=== PATIENT | female | born 1935 | race Caucasian/White ===

== ENCOUNTER 2016-07-28 20:14 | Emergency (ER) | payer OTHER ==
[~2016-07-28] VITALS: Ht 165.1 cm; Wt 97.1 kg
[~2016-07-28 20:14] MED LIST: AMLODIPINE BESY10 M1 PO; CELECOXIB200 M1 PO; FUROSEMIDE20 M1 PO; LISINOPRIL10 M1 PO; OXYBUTYNIN CHLO10 M1 PO; PANTOPRAZOLE SO40 M1 PO; PERCOCET 5-3251 EACH PO; VICODIN 5-3001 EACH PO; ZANAFLEX2 M2 PO
--- NOTE | 2016-07-28 20:29 | ED UPPER/LOWER EXTREMITY COMPL ---
See Addendum History of Present Illness General Chief Complaint: Hip Injury Stated Complaint: RIGHT HIP PAIN NO KNOWN INJURY Source: patient, EMS Exam Limitations: no limitations Vital Signs & Intake/Output Vital Signs & Intake/Output Vital Signs Date Time Temp Pulse Resp B/P B/P Pulse O2 O2 Flow FiO2 Mean Ox Delivery Rate 07/29 0756 97.2 80 20 171/78 98 Room Air 07/28 2340 98.1 78 20 134/63 95 Room Air 07/28 2024 98.3 80 16 123/60 98 Room Air Room Air ED Intake and Output 07/29 0000 07/28 1200 Intake Total 0 Output Total Balance 0 Intake, Oral 0 Patient 214 lb Weight Weight Estimated Measurement Method Allergies Coded Allergies: No Known Allergies (07/28/16) Reconcile Medications Amlodipine Besylate 10 MG TABLET 1 TAB PO DAILY B/P (Reported) Celecoxib 200 MG CAPSULE 1 CAP PO DAILY ARTHRITIS (Reported) Furosemide 20 MG TABLET 1 TAB PO DAILY CHF (Reported) Hydrocodone/Acetaminophen (Vicodin 5-300 MG Tablet) 5 MG-300 MG TABLET 1 TAB PO BID PRN HIP PAIN (Reported) Lisinopril 10 MG TABLET 1 TAB PO DAILY BP (Reported) Oxybutynin Chloride (Oxybutynin Chloride ER) 10 MG TAB.ER.24 1 TAB PO DAILY OVERACTIVE BLADDER (Reported) Oxycodone HCl/Acetaminophen (Percocet 5-325 MG Tablet) 5 MG-325 MG TABLET 1 TAB PO BID Hip Pain Pantoprazole Sodium 40 MG TABLET.DR 1 TAB PO DAILY ACID REFLUX (Reported) Tizanidine HCl (Zanaflex) 2 MG CAPSULE 0.5 TAB PO Q6 PAIN (Reported) Triage Note: PT BIBA FROM HOME FOR RIGHT HIP PAIN. PT HAS CORTISONE INJECTION AT 1500 TODAY AND HAS HAD INCREASING PAIN SINCE. PT STATES EARLIER IT WAS SHOOTING DOWN TO HER KNEE. DENIES FALLING. +CMS. Triage Nurses Notes Reviewed? yes Onset: Abrupt Duration: hour(s): (SEVERAL) Timing: single episode today Severity: moderate, severe Pain/Injury Location: Right: Hip, Leg, Knee. Associated Symptoms: SPASM HPI: This is an 81-year-old female with history of arthritis status post bilateral shoulder, bilateral knee and left hip replacement. Today she had a cortisone injection in her right hip by Tony Jones MD. She states that he went posteriorly and didn't injection. Right after the injection she try to get off the table and had pain in the back. He told her he couldn't do another injection and sent her home to Tylenol earlier without any relief. Tonight the pain got so bad that she had to come to the ER for evaluation. Patient called EMS. Denies any numbness or tingling. She states pain is worse with movement. She rates it as 8 out of 10 severe, sharp, radiating from the left buttock down to the right posterior thigh. Patient denies any trauma. She uses a rolling walker at home. (GUNNAR LOGAN MD) Past History Travel History Traveled to [place] past 21 day No Medical History Any Pertinent Medical History? 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 No (GUNNAR LOGAN MD) Review of Systems Review of Systems Constitutional: Denies: chills, fever. EENTM: Reports: no symptoms. Respiratory: Denies: cough, short of breath. Cardiovascular: Denies: chest pain. Gastrointestinal/Abdominal: Reports: no symptoms. Genitourinary: Reports: no symptoms. Musculoskeletal: Reports: back pain, joint pain, muscle pain. Denies: muscle stiffness, neck pain. Skin: Reports: no symptoms. Neurological/Psychological: Reports: no symptoms. Hematologic/Endocrine: Denies: bruising, bleeding. Immunological: Reports: no symptoms. All Other Systems: Reviewed and Negative (GUNNAR LOGAN MD) Physical Exam Physical Exam General Appearance: well developed/nourished, alert, awake, mild distress, obese Head: atraumatic Eyes: Bilateral: PERRL, EOMI. Ears, Nose, Throat: normal pharynx, normal ENT inspection, hearing grossly normal Neck: normal inspection, supple Cardiovascular/Respiratory: regular rate/rhythm Peripheral Pulses: 2+ radial (R), 2+ radial (L), 2+ dorsalis pedis (R), 2+ dorsalis pedis (L) Back: normal inspection Shoulder Left: normal range of motion, normal inspection Shoulder Right: normal range of motion, normal inspection Leg Left: normal range of motion, normal inspection Leg Right: normal range of motion, normal inspection Hip Left: normal range of motion, normal inspection Hip Right: pain (right hip rom) Foot Left: normal inspection, normal range of motion Foot Right: normal inspection, normal range of motion Skin: intact, normal color, warm/dry Lymphatic: no anterior cervical cristhian (GUNNAR LOGAN MD) Progress Differential Diagnosis: sciatica, arthirits, exacerbation of chronic pain Plan of Care: Orders Procedure Date/time Status Regular Diet 07/29 B Active PT Evaluate & Treat 07/29 125 Active CASE MANAGEMENT CONSULT 07/29 125 Active Current Medications Sig/Flora Start time Last Medication Dose Stop Time Status Admin Amlodipine Besylate 10 MG DAILY 07/29 1000 UNVr (Norvasc) Celecoxib 200 MG DAILY 07/29 1000 UNVr (Celebrex 100MG) Furosemide 20 MG DAILY 07/29 1000 UNVr (Lasix) Lisinopril 10 MG DAILY 07/29 1000 UNVr (Prinivil) Oxybutynin Chloride 5 MG BID 07/29 1000 UNVr (Ditropan) Acetaminophen/ 1 TAB Q6P PRN 07/29 0600 UNVr 07/29 Hydrocodone Bitart 0800 (Vicodin) Tizanidine HCl 1 MG Q6P PRN 07/29 0600 UNVr (Zanaflex) Hand-Off Endorsed To: DIANE BANSAL MD Endorsed Time: 2300 Pending: other (REEVALUATION) (GUNNAR LOGAN MD) Hand-Off Endorsed To: NICOLE KIMBLE DO Endorsed Time: 07 Pending: consult Comments: Patient's does state that the pain is too severe to attempt to walk. Patient will have physical therapy in case management consult. (DIANE BANSAL MD) Departure Departure Disposition: STILL A PATIENT Condition: Stable Clinical Impression Primary Impression: Sciatica Referrals: OMAR TEAGUE (PCP/Family) Departure Forms: Customer Survey General Discharge Information (DESMOND RANDHAWA,GUNNAR) Departure Comments 07/29/16 9 AM The patient was signed out to me by Dr. Bansal. She was ambulated successfully by PT. She is requesting enhancement of her pain medication; PT feels she can go home. She is requesting a physician's note that she can have her meals delivered at home. She currently lives in assisted care. She is pending case management consult to facilitate this discharge plan. She also needs home PT. (NICOLE KIMBLE DO)
[2016-07-29] MEDS ORDERED: VICODIN 5-3001 EACH PO (13:36)
[2016-07-29 14:10] VITALS: BP 116/70
== END 2016-07-29 14:11 ==
LOC: ERH 20:14
DX: M54.41 Lumbago with sciatica, right side (principal)
CPT/HCPCS: 96374; 96375; J0131; J1100; J1885; J3360

== ENCOUNTER 2016-08-23 13:10 | Emergency (ER) | payer OTHER ==
[~2016-08-23] VITALS: Ht 167.6 cm; Wt 90.7 kg
[2016-08-23] MEDS ORDERED: FLONASE ALLERG9.9 ML INH (13:30)
[2016-08-23] MEDS ORDERED: TYLENOL ARTHRI650 M1 PO (13:30)
[2016-08-23] MEDS ORDERED: VENTOLIN HFA18 GM INH (13:31)
[2016-08-23] MEDS ORDERED: PERCOCET 5-3251 EACH PO (13:31)
[2016-08-23] MEDS ORDERED: NORVASC10 M1 PO (13:32)
[2016-08-23] MEDS ORDERED: PROTONIX40 M3 PO (13:32)
[2016-08-23] MEDS ORDERED: OXYBUTYNIN CHLO10 M1 PO (13:32)
[2016-08-23] MEDS ORDERED: CELEBREX200 M1 PO (13:33)
[2016-08-23] MEDS ORDERED: ASPIRIN EC81 M1 PO (13:34)
[2016-08-23] MEDS ORDERED: CO Q-1050 M1 PO (13:34)
[2016-08-23] MEDS ORDERED: VITAMIN D31000 UNI1 PO (13:34)
[2016-08-23] MEDS ORDERED: MAGNESIUM500 M2 PO (13:35)
[2016-08-23] MEDS ORDERED: TIZANIDINE HCL2 M2 PO (13:35)
[2016-08-23] MEDS ORDERED: LISINOPRIL10 M1 PO (13:35)
[2016-08-23] MEDS ORDERED: LASIX20 M1 PO (13:36)
--- NOTE | 2016-08-23 13:54 | ED UPPER/LOWER EXTREMITY COMPL ---
History of Present Illness General Chief Complaint: Hip Injury Stated Complaint: BIBA HIP PAIN Source: patient, family, old records Exam Limitations: no limitations Vital Signs & Intake/Output Vital Signs & Intake/Output Vital Signs Date Time Temp Pulse Resp B/P B/P Pulse O2 O2 Flow FiO2 Mean Ox Delivery Rate 08/23 1315 96.8 72 16 143/94 97 Room Air Allergies Coded Allergies: No Known Allergies (07/28/16) Reconcile Medications Acetaminophen (Tylenol Arthritis) 650 MG TABLET.ER 1 TAB PO Q6-PRN PRN PAIN ( Reported) Albuterol Sulfate (Ventolin Hfa) 90 MCG HFA.AER.AD 2 PUF INH Q4-6 PRN PRN ASTHMA (Reported) Amlodipine Besylate (Norvasc) 10 MG TABLET 1 TAB PO DAILY HTN (Reported) Aspirin (Ecotrin*) 81 MG TABLET.DR 1 TAB PO DAILY HEART HEALTH (Reported) Celecoxib (Celebrex) 200 MG CAPSULE 1 CAP PO BID ARTHRITIS (Reported) Cholecalciferol (Vitamin D3) (Vitamin D3) 1,000 UNIT CAPSULE 1 CAP PO DAILY SUPPLEMENT (Reported) Fluticasone Propionate (Flonase Allergy Relief) 50 MCG/ACTUATION SPRAY.SUSP 1 SPRAY INH BID ALLERGIES (Reported) Furosemide (Lasix) 20 MG TABLET 1 TAB PO DAILY CHF (Reported) Lisinopril 10 MG TABLET 1 TAB PO DAILY HTN (Reported) Magnesium Oxide (Magnesium) 500 MG CAPSULE 0.5 CAP PO DAILY SUPPLEMENT ( Reported) Oxybutynin Chloride (Oxybutynin Chloride ER) 10 MG TAB.ER.24 1 TAB PO DAILY OVERACTIVE BLADDER (Reported) Oxycodone HCl/Acetaminophen (Percocet 5-325 MG Tablet) 5 MG-325 MG TABLET 1 TAB PO BIDP PRN PAIN (Reported) Pantoprazole Sodium (Protonix) 40 MG TABLET.DR 1 TAB PO DAILY GERD (Reported) Tizanidine HCl 2 MG CAPSULE 1 TAB PO BID MUSCLE SPASMS (Reported) Ubidecarenone (Co Q-10) 50 MG CAPSULE 1 TAB PO DAILY HEART HEALTH (Reported) Triage Note: PT JOHNNY FROM HOME WITH RT HIP/BUTTOCK PAIN. STATES THE PAIN IS CHRONIC AND SHE SAID SHE AGGRAVATED IT THIS MORNING WHILE GETTING OUT OF BED. REPORTS THAT SHE USUALLY TAKES TYLENOL WITH CODEINE BUT DOESNT LIKE TO TAKE TOO MUCH OF IT FOR FEAR OF GETTING ADDICTED TO IT. STATES SHE DID TAKE A TYLENOL #3 AT AROUND 830 THIS MORNING. DENIES ANY RECENT FALL/INJURY. +DISTAL CMS TO RT LEG. NOTED WITH +1 PITTING EDEMA TO ABDOUL LE. Triage Nurses Notes Reviewed? yes Onset: Just prior to arrival Duration: hour(s):, constant, continues in ED Timing: recent history Severity: moderate Pain/Injury Location: Right: Hip. Method of Injury: unknown Modifying Factors: Improves With: rest. Worsens With: movement. Associated Symptoms: GCS 15 since, stiffness LMP (ages 10-50): post menopausal : No Patient currently breastfeeds: No HPI: Prior to admission patient was getting out of bed and twisted developing right hip pain worse with movement turning bending nonradiating associated with limited range of motion constant mild to moderate in severity. She denies fever chills nausea vomiting diarrhea abdominal pain chest pain shortness of breath headache dysuria rash bleeding. Past History Travel History Traveled to [place] past 21 day No Medical History Any Pertinent Medical History? 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 No Review of Systems Review of Systems Constitutional: Reports: no symptoms. EENTM: Reports: no symptoms. Respiratory: Reports: no symptoms. Cardiovascular: Reports: no symptoms. Gastrointestinal/Abdominal: Reports: no symptoms. Genitourinary: Reports: no symptoms. Musculoskeletal: Reports: see HPI, joint pain. Skin: Reports: no symptoms. Neurological/Psychological: Reports: no symptoms. Hematologic/Endocrine: Reports: no symptoms. Immunological: Reports: no symptoms. All Other Systems: Reviewed and Negative Physical Exam Physical Exam General Appearance: well developed/nourished, alert, awake, anxious, mild distress, obese Head: atraumatic, normal appearance Eyes: Bilateral: normal appearance, PERRL, EOMI. Ears, Nose, Throat: normal pharynx, normal ENT inspection, hearing grossly normal Neck: normal inspection, supple Cardiovascular/Respiratory: regular rate/rhythm Peripheral Pulses: 4+ carotid (R), 4+ carotid (L) Back: normal inspection, normal range of motion, no vertebral tenderness Shoulder Left: normal range of motion, normal inspection Shoulder Right: normal range of motion, normal inspection Elbow Left: normal range of motion, normal inspection Elbow Right: normal range of motion, normal inspection Hand Left: normal inspection, normal range of motion Hand Right: normal inspection, normal range of motion Upper Extremity Reflexes: 2+: bicep (R), bicep (L). Leg Left: normal range of motion, normal inspection Leg Right: normal range of motion, normal inspection Hip Left: normal range of motion, normal inspection Hip Right: normal inspection, tenderness, soft tissue tenderness, limited range of motion Knee Left: normal range of motion, normal inspection Knee Right: normal range of motion, normal inspection Foot Left: normal inspection, normal range of motion Foot Right: normal inspection, normal range of motion Lower Extremity Reflexes: 2+: knee (R), knee (L). Neurologic/Tendon: normal sensation, normal motor functions, normal tendon functions Skin: intact, normal color, warm/dry Lymphatic: no anterior cervical cristhian Progress Differential Diagnosis: contusion, dislocation, fracture, sprain Plan of Care: Orders Procedure Date/time Status MAGNESIUM 08/23 131 Complete COMPREHENSIVE METABOLIC PANEL 08/23 1318 Complete CBC WITHOUT DIFFERENTIAL 08/23 1318 Complete Laboratory Tests 08/23/16 1422: Anion Gap 11, Estimated GFR > 60, BUN/Creatinine Ratio 33.3 H, Glucose 103 H, Calcium 9.6, Magnesium 1.8, Total Bilirubin 0.9, AST 22, ALT 41, Alkaline Phosphatase 50, Total Protein 6.7, Albumin 3.8, Globulin 2.9, Albumin/Globulin Ratio 1.3, CBC w Diff NO MAN DIFF REQ, RBC 4.60, MCV 89.9, MCH 29.5, RDW 14.0, MPV 8.3, Gran % 49.6, Lymphocytes % 38.4, Monocytes % 7.7, Eosinophils % 3.8, Basophils % 0.5, Absolute Granulocytes 3.0, Absolute Lymphocytes 2.3, Absolute Monocytes 0.5, Absolute Eosinophils 0.2, Absolute Basophils 0, PUBS MCHC 32.8 L Diagnostic Imaging: Viewed by Me: Radiology Read. Discussed w/RAD: Radiology Read. Radiology Impression: [id number] osteoarthritis. No fracture. Departure Departure Time of Disposition: 1529 Disposition: HOME OR SELF CARE Condition: Stable Clinical Impression Primary Impression: Osteoarthritis of right hip Qualifiers: Osteoarthritis type: unspecified Qualified Code: M16.11 - Unilateral primary osteoarthritis, right hip Referrals: OMAR TEAGUE (PCP/Family) Departure Forms: Customer Survey General Discharge Information
--- NOTE | 2016-08-23 14:16 | RADIOLOGY REPORT ---
EXAMINATION: XR HIP, RIGHT CLINICAL INFORMATION: Right hip pain. Osteoarthritis. Evaluate for a fracture. COMPARISON: Multiple priors, most recent CT pelvis dated 02/20/2016. TECHNIQUE: AP and frog-leg lateral views of the right hip. FINDINGS: There is severe joint space narrowing with mild associated subchondral sclerosis. There are small subchondral cysts and small marginal osteophytes. There is no fracture or dislocation. There is no abnormal soft tissue calcification. IMPRESSION: [id number] osteoarthritis. No fracture.
[2016-08-23 14:39] LABS: ABSOLUTE BASOPHIL COUNT 0 /CUMM (0.0-0.2); ABSOLUTE EOSINOPHIL COUNT 0.2 /CUMM (0.0-0.7); ABSOLUTE LYMPH COUNT 2.3 /CUMM (1.2-3.4); ABSOLUTE MONOCYTE COUNT 0.5 /CUMM (0.10-0.60); BASOPHIL % 0.5 % (0.0-2.0); EOSINOPHIL % 3.8 % (0-5); GRANULOCYTE % 49.6 % (42.2-75.2); HEMATOCRIT 41.3 % (37-47); MEAN CORPUSCULAR HGB 29.5 PG (27.0-31.0); MEAN CORPUSCULAR HGB CONC 32.8 G/DL (33.0-37.0); MEAN CORPUSCULAR VOLUME 89.9 FL (81.0-99.0); MEAN PLATELET VOLUME 8.3 FL (7.4-10.4); PLATELET COUNT 188 /CUMM (130-400); WHITE BLOOD CELL COUNT 6.1 /CUMM (4.8-10.8)
[2016-08-23] MEDS ORDERED: ULTRAM50 M1 PO (15:39)
[2016-08-23 16:30] VITALS: BP 111/58
== END 2016-08-23 16:42 ==
LOC: ERH 13:10
PROVIDERS: Emergency Medicine
DX: M16.11 Unilateral primary osteoarthritis, right hip (principal)
CPT/HCPCS: 73502-RT; 96372

== ENCOUNTER 2016-10-11 04:57 | Inpatient (IN) | payer OTHER ==
[~2016-10-11] VITALS: Ht 165.1 cm; Wt 90.7 kg
[~2016-10-11 04:57] MED LIST changes: +ASPIRIN EC81 M1 PO; +CELEBREX200 M1 PO; +CO Q-1050 M1 PO; +FLONASE ALLERG9.9 ML INH; +IRON325 M3 PO; +LASIX20 M1 PO; +MAGNESIUM500 M2 PO; +MELATONIN3 M4 PO; +NORVASC10 M1 PO; +PROTONIX40 M3 PO; +TIZANIDINE HCL2 M2 PO; +TYLENOL ARTHRI650 M1 PO; +ULTRAM50 M1 PO; +VENTOLIN HFA18 GM INH; +VITAMIN D31000 UNI1 PO
--- NOTE | 2016-10-11 11:39 | Operative Report ---
Operative/Inv Procedure Report Surgery Date: 10/11/16 Name of Procedure: Revision right total knee arthroplasty Pre-Operative Diagnosis: A septic loosening right total knee arthroplasty Post-Operative Diagnosis: Same with final pathology/microbiology pending Estimated Blood Loss: less than 50ml Surgeon/Facility Service Associate: ALEC RANDHAWA,Jud[facility] [employer] Anesthesia: block Implants: [place] triathlon total knee revision system-size 4 femur with 18 mm fluted stem , size 4 tibia with 14 mm fluted stem, 13 mm TS polyethylene Drains: None Specimens: Total knee arthroplasty, membrane Microbiology: Urine Tourniquet: 109 minutes, 14 minutes Complications: None Condition: Stable Operative Indication: Patient is an 81-year-old woman who had a right total knee arthroplasty at least 25 years ago. 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 She was referred to co for further evaluation and treatment. Patient required a total knee arthroplasty revision. She wished to proceed with this after risks, benefits and expectations were discussed which included but were not limited to persistent knee pain, need for subsequent surgery, infection , DVT, injury to blood vessel or nerve. Preoperative indications included findings consistent with loosening of total knee arthroplasty, instability, decreased ability to ambulate secondary to the knee problem and worsening alignment Operative/Procedure Note Note: Patient was brought patient was brought to the operating room and transferred to the operating table. Once under appropriate anesthesia the right lower extremity was prepped and draped in standard fashion area preoperative IV antibiotics were given prophylactically. Leg was elevated exsanguinated and tourniquet was inflated to 300 mm of pressure. Standard anterior incision was made through previous incision. Incision was taken down sharply to the underlying retinaculum. A medial retinacular approach with a minimal extension into the quadriceps tendon was used to enter the joint. There was evidence of loosening of the femoral component and tibial component as well as a subsidence of the tibial component into varus. I debrided significant amount of synovial hypertrophy there was some metallosis along the most medial aspect of the of the joint. After debridement I then assessed the interfaces and remove any soft tissue that would interfere with removal of the prosthetic components. The femoral component was removed first. Care was taken to avoid any increased loss of bone during removal of the component. Cement mantle was removed at the interfaces and I used a bone tamp to remove the femoral component. Once this was accomplished I was able to address the tibia. I was dealing with a polyethylene tibia therefore I used a saw to cut the base of the post off and then I removed the main portion of the polyethylene. This allowed me to flex the knee further and then removed the post as a separate piece. The cement mantle was removed circumferentially around the tibia and femur. Copious irrigation followed. Synovectomy was completed posteriorly. I then proceeded with preparation of the femur. And reamers up to a size 18 were used in order to place the shortest stem. The bone support would be very good and therefore he did not need a long stem component. I proceeded to leave the [address] and then constructed the distal femoral cutting jig. The cut was made at 6. It was basically a freshening cut. I then sized the femur to a size 4. I made my 4 cuts while protecting the soft tissues. It was apparent that patient had an elevated joint line based on my preoperative templating. Therefore decided to proceed with placing the distal aspect of the femur 5 mm more distal than it was. This would hopefully combat effects of the patella baja which patient had also developed based on preoperative templating and my intraoperative findings. Once I completed preparation of femur I instructed the femoral component and the back table and then impacted the trial in place. I was satisfied with the fit. The trial component was removed. I then turned my attention to the tibia. The internal tibial guide was used I reamed up to a size 14. I left the size [address] I then constructed the cutting jig for a neutral cut from posterior to anterior as well as medial to lateral. This was also a freshening cut. I was able to save the medial shell as well as posterior shell. After the freshening cut was made I then sized the tibia to a size 4. Constructed the size 4 with the tibial stem in place after I prepared the proximal aspect the tibia with the reamer followed by the punch. Care was taken to avoid any undue pressure on the sclerotic bone of this patient's proximal tibia. Once I was satisfied with the preparation of tibia I impacted the trial tibia in place with the short stem. I placed trial polyethylenes up to a size 13. I was satisfied with the stability with a size 13. I evaluated the patella. The patella itself was intact as far as his interface with the patellar bone and the cement mantle was intact. There was a very small amount of wear along the most medial aspect of the patella. This was most likely due to patient's developed deformity and this area would be alleviated by just fixing the overall alignment of the lower extremity. Therefore I elected not to add to the surgical trauma and risk not been able to resurface the patella and therefore left the current patella in place. I confirm that it had excellent tracking and it did. There was no evidence of tilt or subluxation or instability. There was no need for a lateral patellar release. I then removed all trial components. Copious irrigation of the knee followed during construction of the complicated components on the back table I elected to deflate the tourniquet so that I did not have a continuous tourniquet time of 2 long period. Therefore did later the tourniquet for about 10-15 minutes. Once the components were ready the cement was being mixed on the back table. The bony surfaces were copiously irrigated. Once the cement was ready applied to the dry clean bony surfaces of the tibia. The size 4 stemmed tibial component was impacted in place and excess cement was removed with curettes. The stemmed femoral component of size [address] after cement was applied to the dry clean bony surfaces. Excess cement was removed with curette. I then placed a trial 13 mm TS component in place and took the knee out to full extension. As the cement was hardening did appear articular pericapsular injection of a cocktail which included ropivacaine with epinephrine and Toradol for postoperative pain and inflammation management. Once the cement was hardening took the knee through a range of motion. I was satisfied with the stability with the 13 mm insert. Excellent patellofemoral tracking. I then removed the polyethylene copiously irrigated the tibial tray I made sure there was no remaining soft tissue, bone fragments or soft tissue fragments within the tibial tray. I impacted the definitive size [address] The locking mechanism was confirmed. The knee was taken through range of motion. Once again I was satisfied with the patellofemoral tracking and stability in full extension mid flexion and full flexion to gravity. Copious irrigation followed. The tourniquet was deflated the second time after 14 minutes. It was reinflated just for the cement technique and to optimize the dry bony surfaces of the tibia and femur. Hemostasis was confirmed. Copious irrigation followed. Copious irrigation followed every level of closure. Retinacular and quadricep incision was closed with interrupted #1 Vicryl suture. Subcutaneous tissues closed with 2-0 Vicryl in 2 layers and skin was closed with a running 3-0 Vicryl suture with the knee in flexion. Appropriate dressings were applied and patient was awakened and taken to recovery room in good condition. No intraoperative complications Discharge Disposition: PACU
[2016-10-11 14:30] VITALS: BP 130/60
--- NOTE | 2016-10-11 16:17 | PN- Orthopedic ---
Subjective Subjective: POST-OP NOTE: No complaints at this time. Earlier she reported "chest pain", but she feels like it was actually indigestion. Otherwise she hasn't been out of bed yet. No dizziness. No shortness of breath. An EKG was ordered post-op by anesthesia and reviewed by them - with no acute changes appreciated. Objective Vital Signs and I&Os pacu flowsheet reviewed (vss), urine output 495 mls (OR & PACU combined) Physical Exam: General - alert & oriented x 3. comfortable. no acute distress. Lungs - clear bilaterally. no w/r/r. Cardiac - s1s2. reg. Abdomen - soft. nontender. - bowser draining clear, yellow urine. Extremities - right knee dressing c/d/i. ice pack over right knee. on q in place. nvi. Current Medications: Current Medications Sig/Flora Start time Last Medication Dose Route Stop Time Status Admin Al Hydroxide/Mg 30 ML ONCE ONE 10/11 161 UNVr Hydroxide PO 10/11 161 Amlodipine Besylate 10 MG DAILY 10/12 1000 AC PO Dextrose/Lactated 1,000 ML Q13H 10/11 1430 AC 10/11 Ringer's IV 1547 Docusate Sodium 100 MG DAILY NEEDED PRN 10/11 1430 AC PO Fentanyl Citrate 200 MCG .STK-MED ONE 10/12 711 DC IM 10/11 712 Furosemide 20 MG DAILY 10/12 1000 AC PO Hydromorphone HCl 2 MG .STK-MED ONE 10/11 0737 DC IM 10/11 07 Hydromorphone HCl 2 MG .STK-MED ONE 10/11 07 DC IM 10/11 07 Lisinopril 10 MG DAILY 10/12 1000 AC PO Magnesium Oxide 200 MG DAILY 10/12 1000 AC PO Midazolam HCl 4 MG .STK-MED ONE 10/12 711 DC IM 10/11 07 Morphine Sulfate 2 MG Q3P PRN 10/11 1430 AC IV Morphine Sulfate 4 MG Q3P PRN 10/11 1430 AC IV Omeprazole 40 MG DAILY AC 10/12 0700 AC PO Ondansetron HCl 4 MG Q6P PRN 10/11 1430 AC IV Oxybutynin Chloride 5 MG DAILY 10/12 1000 AC PO Oxycodone/ 1 TAB Q4P PRN 10/11 1430 AC Acetaminophen PO Oxycodone/ 2 TAB Q4P PRN 10/11 1430 AC Acetaminophen PO Polyethylene Glycol 17 GM DAILY NEEDED PRN 10/11 1430 AC PO Ropivacaine 500 ML ONCE ONE 10/11 1030 DC ON-Q Ball 1 BAG INJ 10/13 1229 Senna/Docusate Sodium 2 TAB AT BEDTIME NEED.. 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 ekg reviewed (without acute changes). check troponin x 2 darien-operative vanco x 1 coumadin - dvt ppx PT eval - wbat home meds ordered d/c bowser in am if u/o adequate dressing change and on q removal POD#2 d/c planning will call to notify him of her post-op status and reported chest pain will d/w Core Measures/Miscellaneous Venous Thromboembolism VTE Risk Factors: Age > 40, Surgery VTE Contraindications: No Contraindications VTE Diagnosis: No Beta Jalen Is Beta Jalen a Home Med? No Antibiotics Is Patient on Antibiotics? Yes If Yes: prophylaxis
[2016-10-11 16:44] VITALS: BP 136/76
--- NOTE | 2016-10-11 19:01 | Cons- Cardiology ---
General Information and HPI Consulting Request Date of Consult: 10/11/16 Requested By: ALEC RANDHAWA,LACY Reason for Consult: Chest pain History of Present Illness: The patient is an 81-year-old male who is well-known to me with history of hypertension, chronic diastolic heart failure, and paroxysmal SVT. She underwent a right total knee replacement today without complications. I am consulted because of chest pain. Patient reports a left-sided sharp tightness radiating to the back. The discomfort began this morning prior to surgery however she did not report the pain until after surgery. It has been intermittent all day long. It responds to Maalox. No shortness of breath. No diaphoresis. No syncope. No lightheadedness or dizziness. No nausea vomiting. Allergies/Medications Allergies: Coded Allergies: Penicillins (UNKNOWN 10/11/16) PCN PER ONQ BALL ORDER SHEET OF 10/11/16 (SJS) Home Med List: Amlodipine Besylate (Norvasc) 10 MG TABLET 1 TAB PO DAILY HTN (Reported) Aspirin (Ecotrin*) 81 MG TABLET.DR 1 TAB PO DAILY HEART HEALTH (Reported) Celecoxib (Celebrex) 200 MG CAPSULE 1 CAP PO BID ARTHRITIS (Reported) Cholecalciferol (Vitamin D3) (Vitamin D3) 1,000 UNIT CAPSULE 1 CAP PO DAILY SUPPLEMENT (Reported) Ferrous Sulfate (IRON) 325 MG (65 MG IRON) TABLET 1 TAB PO D SUPPLEMENT ( Reported) Furosemide (Lasix) 20 MG TABLET 1 TAB PO DAILY CHF (Reported) Lisinopril 10 MG TABLET 1 TAB PO DAILY HTN (Reported) Magnesium Oxide (Magnesium) 500 MG CAPSULE 0.5 CAP PO DAILY SUPPLEMENT ( Reported) Melatonin 3 MG TABLET 1 TAB PO QPM SLEEP (Reported) Oxybutynin Chloride (Oxybutynin Chloride ER) 10 MG TAB.ER.24 1 TAB PO DAILY OVERACTIVE BLADDER (Reported) Pantoprazole Sodium (Protonix) 40 MG TABLET.DR 1 TAB PO DAILY GERD (Reported) Tizanidine HCl 2 MG CAPSULE 0.5 MG PO 4 TIMES/DAY MUSCLE RELAXER (Reported) Tramadol HCl (Ultram) 50 MG TABLET 1 TAB PO Q6PRN PRN severe pain Ubidecarenone (Co Q-10) 50 MG CAPSULE 1 TAB PO DAILY HEART HEALTH (Reported) Current Medications: Current Medications Sig/Flora Start time Last Medication Dose Route Stop Time Status Admin Al Hydroxide/Mg 30 ML ONCE ONE 10/11 1615 DC 10/11 Hydroxide PO 10/11 1616 1653 Amlodipine Besylate 10 MG DAILY 10/12 1000 AC PO Dextrose/Lactated 1,000 ML Q13H 10/11 1430 AC 10/11 Ringer's IV 1547 Docusate Sodium 100 MG BID 10/11 2200 AC PO Docusate Sodium 100 MG DAILY NEEDED PRN 10/11 1430 DC PO Fentanyl Citrate 200 MCG .STK-MED ONE 10/11 07 DC IM 10/11 07 Furosemide 20 MG DAILY 10/12 1000 AC PO Hydromorphone HCl 2 MG .STK-MED ONE 10/11 0737 DC IM 10/11 0738 Hydromorphone HCl 2 MG .STK-MED ONE 10/11 0711 DC IM 10/11 0712 Lisinopril 10 MG DAILY 10/12 1000 AC PO Magnesium Oxide 200 MG DAILY 10/12 1000 AC PO Midazolam HCl 4 MG .STK-MED ONE 10/11 0712 DC IM 10/11 0713 Morphine Sulfate 2 MG Q3P PRN 10/11 1430 AC IV Morphine Sulfate 4 MG Q3P PRN 10/11 1430 AC IV Omeprazole 40 MG DAILY AC 10/12 0700 AC PO Ondansetron HCl 4 MG Q6P PRN 10/11 1430 AC IV Oxybutynin Chloride 5 MG DAILY 10/12 1000 AC PO Oxycodone/ 1 TAB Q4P PRN 10/11 1430 AC Acetaminophen PO Oxycodone/ 2 TAB Q4P PRN 10/11 1430 AC Acetaminophen PO Polyethylene Glycol 17 GM DAILY NEEDED PRN 10/11 1430 AC PO Ropivacaine 500 ML ONCE ONE 10/11 1030 DC ON-Q Ball 1 BAG INJ 10/13 1229 Senna/Docusate Sodium 2 TAB AT BEDTIME NEED.. 10/11 1430 AC PO Tizanidine HCl 1 MG Q8P PRN 10/11 1430 AC PO Tranexamic Acid 2,000 MG .STK-MED ONE 10/11 0800 DC IV 10/11 0801 Vancomycin HCl 1,250 MG ONCE ONE 10/11 1900 AC Sodium Chloride 250 ML IV 10/11 1959 Vancomycin HCl 1,250 MG ONCE 10/11 0000 DC Sodium Chloride 250 ML IV 10/11 2359 Warfarin Sodium 5 MG COUMADIN 1700 10/11 1700 AC 10/11 PO 10/11 1398 7866 Review of Systems Review of Systems: No rash. No tremor. No melena. All other systems were reviewed, and were noted to be negative. 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 Family history was reviewed with the patient, and is negative for any known factors contributing to the current admission. Psychosocial History Where Do You Live? Assisted Living Services at Home: Home Health Aide, Nursing Smoking Status: Never Smoked Exam & Diagnostic Data Vital Signs and I&O Vital Signs Date Time Temp Pulse Resp B/P B/P Pulse O2 O2 Flow FiO2 Mean Ox Delivery Rate 10/11 1903 98.3 63 20 124/64 95 Nasal Cannula 10/11 1644 97.6 72 20 136/76 96 Nasal Cannula 10/11 1600 Nasal 3.0L Cannula 10/11 1430 97.6 82 18 130/60 97 Nasal 3.0L Cannula 10/11 1430 97 Nasal 3.0L Cannula Intake & Output 10/11 1600 10/11 0800 10/11 0000 10/10 1600 10/10 0800 10/10 0000 Intake Total Output Total Balance Patient 200 lb Weight Weight Reported by Patient Measurement Method Physical Exam: Gen: The patient is in no acute distress HEENT: Normal nose, ears, and oropharynx. Pupils equal bilaterally. Conjunctiva normal. Neck: Supple with no JVD, no masses, and no thyromegaly Lungs: Clear to auscultation with normal respiratory effort Heart: RRR, S1, S2, 2/6 systolic murmur. No peripheral edema, 2+ pulses in the lower extremities bilaterally Abdomen: Soft, nontender, no masses. No hepatomegaly. No splenomegaly Extremities: No clubbing or cyanosis. Normal muscle strength in the upper and lower extremities Skin: Normal skin turgor with no skin ulcers or lesions noted. Neuro: Cranial nerves intact. Sensation intact Psych: Alert and oriented 3 with appropriate affect Labs/Ganesh Results: Laboratory Tests 10/11 1712 Chemistry Troponin I (< 0.11 ng/ml) 0.02 Diagnostic Data EKG Results EKG tracing is independently reviewed, and reveals normal sinus rhythm at 86 Other Results Echocardiogram 05/31/12: Normal LV size and systolic function. Abnormal diastolic function. Trace pericardial effusion Nuclear stress test 05/29/11: Negative Assessment/Plan Assessment/Plan Assessment: 81-year-old female with history of hypertension, chronic diastolic heart failure , and paroxysmal SVT, status post right knee arthroplasty today with complaint of chest pain which began prior to surgery and continued postoperatively. Discomfort responded to Maalox, and may well be secondary to GERD, however myocardial ischemia is possible as well. Pulmonary embolism is a possibility, however the start of symptoms prior to surgery would make that less likely. Recommendations: * Check serial troponin 3 to rule out monoclonal infarction * Repeat EKG in the morning * DVT prophylaxis with warfarin * Continue current cardiac medications * If myocardial infarction is ruled out and the patient remains stable, we will plan on doing nuclear stress test as outpatient once stable Consult Acknowledgment - Thank you for your consult request.
[2016-10-11 19:03] VITALS: BP 124/64
[2016-10-11 21:00] VITALS: BP 130/70
[2016-10-12 01:05] VITALS: BP 128/70
[2016-10-12 05:09] VITALS: BP 124/76
[2016-10-12 08:39] LABS: PT 11.3 SEC (9.4-12.5)
[2016-10-12 08:59] LABS: ABSOLUTE BASOPHIL COUNT 0 /CUMM (0.0-0.2); ABSOLUTE EOSINOPHIL COUNT 0.3 /CUMM (0.0-0.7); ABSOLUTE LYMPH COUNT 1.9 /CUMM (1.2-3.4); BASOPHIL % 0.4 % (0.0-2.0); EOSINOPHIL % 2.7 % (0-5); GRANULOCYTE % 68.5 % (42.2-75.2); HEMATOCRIT 38.5 % (37-47); MEAN CORPUSCULAR HGB 30.6 PG (27.0-31.0); MEAN CORPUSCULAR HGB CONC 33.3 G/DL (33.0-37.0); MEAN CORPUSCULAR VOLUME 91.7 FL (81.0-99.0); MEAN PLATELET VOLUME 8.5 FL (7.4-10.4); PLATELET COUNT 164 /CUMM (130-400); RBC DISTRIBUTION WIDTH 14.1 % (11.5-14.5); WHITE BLOOD CELL COUNT 10.3 /CUMM (4.8-10.8)
[2016-10-12 10:00] VITALS: BP 104/58
--- NOTE | 2016-10-12 12:41 | PN- Orthopedic ---
See Addendum Subjective Subjective: Patient reporting no acute overnight events. She states that she is having some abdominal pain, left upper quadrant that she feels is gas. She had an episode of chest discomfort in the pacu yesterday and she states that this discomfort is different in nature. She denies nausea and vomitting. She feels that her surgical pain is well controlled. Objective Vital Signs and I&Os Vital Signs Date Time Temp Pulse Resp B/P B/P Pulse O2 O2 Flow FiO2 Mean Ox Delivery Rate 10/12 1009 76 104/58 10/12 1009 76 104/58 10/12 1000 76 104/58 10/12 0509 997.7 62 18 124/76 97 Room Air 10/12 0105 97.5 65 20 128/70 96 Nasal 3.0L Cannula 10/11 2100 98.2 63 20 130/70 99 Room Air 10/11 1903 98.3 63 20 124/64 95 Nasal Cannula 10/11 1644 97.6 72 20 136/76 96 Nasal Cannula 10/11 1600 Nasal 3.0L Cannula 10/11 1430 97.6 82 18 130/60 97 Nasal 3.0L Cannula 10/11 1430 97 Nasal 3.0L Cannula Intake & Output 10/12 1600 10/12 0800 10/12 0000 10/11 1600 10/11 0800 10/11 0000 Intake Total 600 600 Output Total 1400 Balance 600 -800 Intake, IV 600 600 Output, Urine 1400 Patient 200 lb Weight Weight Reported by Patient Measurement Method Physical Exam: General: alert and oriented x3, no acute distress Cardiac: R RR, s1s2 Pulm: C T A bilaterally ABD: Tenderness with palpation luq, non-distended Extremities: Moves all extremities, distal sensation intact, skin warm and well perfused, bilateral calves soft and non-tender. Surgical dressing dry and intact, on q in place. Assessment/Plan Assessment/Plan This is an 81 year old female, POD 1, s/p TKR -Simethecone now for abdominal discomfort -Bowel regimen to be scheduled -OOB with pt, wbat -Coumadin for dvt ppx -Continue current pain regimen -Will abdullahi Courtney Core Measures/Miscellaneous Venous Thromboembolism VTE Risk Factors: Age > 40, Surgery VTE Contraindications: No Contraindications VTE Diagnosis: No Beta Jalen Is Beta Jalen a Home Med? No Antibiotics Is Patient on Antibiotics? Yes If Yes: prophylaxis
--- NOTE | 2016-10-12 13:26 | PN- Cardiology ---
Subjective Subjective: Patient reports that she is feeling better. Chest discomfort has resolved. No shortness of breath. No diaphoresis. No palpitations. Surgical pain is under control. Objective Vital Signs and I&Os Vital Signs Date Time Temp Pulse Resp B/P B/P Pulse O2 O2 Flow FiO2 Mean Ox Delivery Rate 10/12 1009 76 104/58 / 1009 76 104/58 10/12 1000 76 104/58 10/12 0509 997.7 62 18 124/76 97 Room Air 10/12 0105 97.5 65 20 128/70 96 Nasal 3.0L Cannula 10/11 2100 98.2 63 20 130/70 99 Room Air 10/11 1903 98.3 63 20 124/64 95 Nasal Cannula 10/11 1644 97.6 72 20 136/76 96 Nasal Cannula 10/11 1600 Nasal 3.0L Cannula 10/11 1430 97.6 82 18 130/60 97 Nasal 3.0L Cannula 10/11 1430 97 Nasal 3.0L Cannula Intake & Output 10/12 1600 10/12 0800 10/12 0000 10/11 1600 10/11 0800 10/11 0000 Intake Total 600 600 Output Total 1400 Balance 600 -800 Intake, IV 600 600 Output, Urine 1400 Patient 200 lb Weight Weight Reported by Patient Measurement Method Physical Exam: Gen: The patient is in no acute distress HEENT: Normal nose, ears, and oropharynx. Pupils equal bilaterally. Conjunctiva normal. Neck: Supple with no JVD, no masses, and no thyromegaly Lungs: Clear to auscultation with normal respiratory effort Heart: RRR, S1, S2, 2/6 systolic murmur. No peripheral edema, 2+ pulses in the lower extremities bilaterally Abdomen: Soft, nontender, no masses. No hepatomegaly. No splenomegaly Extremities: No clubbing or cyanosis. Normal muscle strength in the upper and lower extremities Skin: Normal skin turgor with no skin ulcers or lesions noted. Current Medications: Current Medications Sig/Flora Start time Last Medication Dose Route Stop Time Status Admin Al Hydroxide/Mg 30 ML .STK-MED ONE 10/11 165 DC Hydroxide PO 10/11 165 Al Hydroxide/Mg 30 ML ONCE ONE 10/11 1615 DC 10/11 Hydroxide PO 10/11 1616 1653 Amlodipine Besylate 10 MG DAILY 10/12 1000 AC 10/12 PO 1009 Dextrose/Lactated 1,000 ML Q13H 10/11 1430 DC 10/12 Ringer's IV 0233 Docusate Sodium 100 MG BID 10/11 2200 AC 10/12 PO 1009 Docusate Sodium 100 MG DAILY NEEDED PRN 10/11 1430 DC PO Furosemide 20 MG DAILY 10/12 1000 AC 10/12 PO 1009 Lisinopril 10 MG DAILY 10/12 1000 AC 10/12 PO 1009 Magnesium Oxide 200 MG DAILY 10/12 1000 AC 10/12 PO 1009 Melatonin 3 MG AT BEDTIME 10/11 2200 AC 10/11 PO 2145 Morphine Sulfate 2 MG Q3P PRN 10/11 1430 AC IV Morphine Sulfate 4 MG Q3P PRN 10/11 1430 AC IV Omeprazole 40 MG DAILY AC 10/12 0700 AC 10/12 PO 0618 Ondansetron HCl 4 MG Q6P PRN 10/11 1430 AC IV Oxybutynin Chloride 5 MG DAILY 10/12 1000 AC 10/12 PO 1009 Oxycodone/ 1 TAB Q4P PRN 10/11 1430 AC 10/12 Acetaminophen PO 1011 Oxycodone/ 2 TAB Q4P PRN 10/11 1430 AC Acetaminophen PO Polyethylene Glycol 17 GM DAILY 10/12 1000 AC 10/12 PO 1008 Polyethylene Glycol 17 GM DAILY NEEDED PRN 10/11 1430 DC PO Ropivacaine 500 ML ONCE ONE 10/11 1030 DC ON-Q Ball 1 BAG INJ 10/13 1229 Senna/Docusate Sodium 2 TAB AT BEDTIME 10/12 2200 AC PO Senna/Docusate Sodium 2 TAB AT BEDTIME NEED.. 10/11 1430 DC PO Simethicone 40 MG Q4P PRN 10/12 0745 AC PO Tizanidine HCl 1 MG Q8P PRN 10/11 1430 AC 10/11 PO 2146 Vancomycin HCl 1,250 MG ONCE ONE 10/11 1900 DC 10/11 Sodium Chloride 250 ML IV 10/11 1959 2036 Vancomycin HCl 1,250 MG ONCE 10/11 0000 DC Sodium Chloride 250 ML IV 10/11 2359 Warfarin Sodium 5 MG COUMADIN 1700 ONE 10/12 1700 AC PO 10/12 1701 Warfarin Sodium 5 MG COUMADIN 1700 10/11 1700 DC 10/11 PO 10/11 2359 1653 Results Last 48 Hrs of Labs/Mics: Laboratory Tests 10/12/16 0737: Anion Gap 8, Estimated GFR > 60, BUN/Creatinine Ratio 20.0, PT 11.3, INR 1.08, CBC w Diff NO MAN DIFF REQ, RBC 4.20, MCV 91.7, MCH 30.6, RDW 14.1, MPV 8.5, Gran % 68.5, Lymphocytes % 18.9 L, Monocytes % 9.5 H, Eosinophils % 2.7, Basophils % 0.4, Absolute Granulocytes 7.0 H, Absolute Lymphocytes 1.9, Absolute Monocytes 1.0 H, Absolute Eosinophils 0.3, Absolute Basophils 0, PUBS MCHC 33.3 10/11/16 2220: Troponin I 0.02 10/11/16 1712: Troponin I 0.02 Assessment/Plan Assessment/Plan Assessment: 1. Hypertension 2. Chronic diastolic heart failure 3. Status post right knee arthroplasty 4. Chest pain, resolved. Ruled out for myocardial infarction Plan: * Current cardiac medications. * Monitor for further cardiac symptoms. * Follow up in 2 weeks after discharge. Continue telemetry? Not applicable
[2016-10-12 14:53] VITALS: BP 132/64
[2016-10-12 22:07] VITALS: BP 136/70
[2016-10-13 06:30] VITALS: BP 142/80
--- NOTE | 2016-10-13 07:57 | PN- Orthopedic ---
See Addendum Subjective Subjective: No overnight events reported. Patient acknowledging pain at the present time, is anticipating dressing change. Denies chest pain, shortness of breath and difficulty breathing. Denies nausea and vomitting. Has been oob. Objective Vital Signs and I&Os Vital Signs Date Time Temp Pulse Resp B/P B/P Pulse O2 O2 Flow FiO2 Mean Ox Delivery Rate 10/13 0630 99.1 85 20 142/80 92 Room Air 10/12 2207 99.8 70 20 136/70 92 10/12 1600 95 Room Air 10/12 1453 Room Air 10/12 1453 97.9 71 20 132/64 94 Room Air 10/12 1009 76 104/58 10/12 1009 76 104/58 10/12 1000 76 104/58 Intake & Output 10/13 0800 10/13 0000 10/12 1600 10/12 0800 10/12 0000 10/11 1600 Intake Total 383 112 4720 600 600 Output Total 400 1400 Balance 205 088 5707 600 -800 Intake, IV 450 600 600 Intake, Oral 240 240 960 Intake, Tube 450 Feeding Output, Urine 400 1400 Patient 200 lb Weight Weight Reported by Patient Measurement Method Physical Exam: General: Alert and oriented x3, no acute distress Cards: RRR, s1s2 Pulm: CTA bilaterally Abd: Non-tender, nondistended Extremities: Moves all extremities, distal sensation intact, skin warm and well perfused, dressing blood tinged with old, dry blood. Bilateral calves soft and non-tender. Assessment/Plan Assessment/Plan This is a 81 year old female, POD 2, s/p revision right tkr. -Dressing changed today, daily dry dressing changes -OOB with pt, wbat -Coumadin: Dose per INR, f/u am labs -Diet as tolerated -Bowel regimen -Will d/w Dr. Courtney Core Measures/Miscellaneous Venous Thromboembolism VTE Risk Factors: Age > 40, Surgery VTE Contraindications: No Contraindications VTE Diagnosis: No Beta Jalen Is Beta Jalen a Home Med? No Antibiotics Is Patient on Antibiotics? Yes If Yes: prophylaxis
[2016-10-13 08:53] LABS: PT 18.1 SEC (9.4-12.5)
[2016-10-13 09:01] LABS: ABSOLUTE BASOPHIL COUNT 0 /CUMM (0.0-0.2); ABSOLUTE EOSINOPHIL COUNT 0.1 /CUMM (0.0-0.7); ABSOLUTE GRANULOCYTE CT 5.9 /CUMM (1.4-6.5); ABSOLUTE LYMPH COUNT 2.1 /CUMM (1.2-3.4); BASOPHIL % 0.4 % (0.0-2.0); EOSINOPHIL % 1.4 % (0-5); GRANULOCYTE % 63.9 % (42.2-75.2); HEMATOCRIT 36.8 % (37-47); MEAN CORPUSCULAR HGB 30.7 PG (27.0-31.0); MEAN CORPUSCULAR HGB CONC 33.7 G/DL (33.0-37.0); MEAN CORPUSCULAR VOLUME 91.2 FL (81.0-99.0); MEAN PLATELET VOLUME 8.7 FL (7.4-10.4); PLATELET COUNT 149 /CUMM (130-400); RED BLOOD CELL CT 4.04 /CUMM (4.20-5.40); WHITE BLOOD CELL COUNT 9.2 /CUMM (4.8-10.8)
--- NOTE | 2016-10-13 13:19 | RADIOLOGY REPORT ---
EXAMINATION: XR KNEE, RIGHT CLINICAL INFORMATION: Status post right total knee revision. COMPARISON: Right knee films dated 01/21/2016. TECHNIQUE: Two views of the right knee performed on 3 images. FINDINGS: The patient is status post total right knee revision. The femoral and tibial prosthetic components appearing intact and normally aligned. No [place] bone fracture is seen. Small amount of prepatellar soft tissue swelling and subcutaneous emphysema in the anterior soft tissues of the lower thigh are noted consistent with postoperative change. Vascular phleboliths and other vascular calcifications are seen. IMPRESSION: Anatomic alignment status post total right knee revision.
[2016-10-13 15:08] VITALS: BP 128/64
[2016-10-13 22:41] VITALS: BP 100/60
[2016-10-14 06:47] VITALS: BP 124/68
[2016-10-14 08:33] LABS: ABSOLUTE BASOPHIL COUNT 0 /CUMM (0.0-0.2); ABSOLUTE EOSINOPHIL COUNT 0.2 /CUMM (0.0-0.7); ABSOLUTE GRANULOCYTE CT 5.6 /CUMM (1.4-6.5); ABSOLUTE LYMPH COUNT 2.3 /CUMM (1.2-3.4); ABSOLUTE MONOCYTE COUNT 0.9 /CUMM (0.10-0.60); BASOPHIL % 0.4 % (0.0-2.0); EOSINOPHIL % 2.4 % (0-5); GRANULOCYTE % 61.8 % (42.2-75.2); HEMATOCRIT 35.3 % (37-47); MEAN CORPUSCULAR HGB CONC 32.9 G/DL (33.0-37.0); MEAN CORPUSCULAR VOLUME 91.2 FL (81.0-99.0); MEAN PLATELET VOLUME 8.7 FL (7.4-10.4); PLATELET COUNT 151 /CUMM (130-400); RBC DISTRIBUTION WIDTH 13.8 % (11.5-14.5); RED BLOOD CELL CT 3.87 /CUMM (4.20-5.40)
[2016-10-14 08:40] LABS: PT 28.4 SEC (9.4-12.5)
--- NOTE | 2016-10-14 09:15 | PN- Orthopedic ---
Subjective Subjective: No complaints. Reports pain controlled. Tolerating diet. No nausea. Denies dizziness. No shortness of breath. No chest pains. No bm yet. Objective Vital Signs and I&Os Vital Signs Date Time Temp Pulse Resp B/P B/P Pulse O2 O2 Flow FiO2 Mean Ox Delivery Rate 10/14 0902 80 124/68 10/14 0902 80 124/68 10/14 0647 99.2 80 20 124/68 92 Room Air 10/13 2241 98.0 73 20 100/60 96 Room Air 10/13 1508 99.7 73 20 128/64 93 Intake & Output 10/14 1600 10/14 0800 10/14 0000 10/13 1600 10/13 0800 10/13 0000 Intake Total 100 300 480 240 240 Output Total 650 400 Balance -550 -100 480 240 240 Intake, Oral 100 300 480 240 240 Number 0 0 Bowel Movements Output, Urine 650 400 Physical Exam: General - alert & oriented x 3. out of bed to chair. no acute distress. Lungs - clear Cardiac - s1s2 Abdomen - soft. nontender. Extremities - right knee dressing changed. incision approximated with steri strips. nvi. calves soft and nontender b/l. Current Medications: Current Medications Sig/Flora Start time Last Medication Dose Route Stop Time Status Admin Amlodipine Besylate 10 MG DAILY 10/12 1000 AC 10/14 PO 0902 Calcium Carbonate 500 MG DAILY 10/13 2028 AC 10/13 PO 2040 Docusate Sodium 100 MG BID 10/11 2199 AC 10/14 PO 0902 Furosemide 20 MG DAILY 10/12 1000 AC 10/14 PO 0902 Lisinopril 10 MG DAILY 10/12 1000 AC 10/14 PO 0902 Magnesium Oxide 200 MG DAILY 10/12 1000 AC 10/14 PO 0904 Melatonin 3 MG AT BEDTIME 10/11 220 AC 10/13 PO 2225 Morphine Sulfate 2 MG Q3P PRN 10/11 1430 AC IV Morphine Sulfate 4 MG Q3P PRN 10/11 1430 AC 10/12 IV 2119 Omeprazole 40 MG DAILY AC 10/12 0700 AC 10/14 PO 0526 Ondansetron HCl 4 MG Q6P PRN 10/11 1430 AC IV Oxybutynin Chloride 5 MG DAILY 10/12 1000 AC 10/14 PO 0902 Oxycodone/ 1 TAB Q4P PRN 07/17 1430 AC 10/14 Acetaminophen PO 0526 Oxycodone/ 2 TAB Q4P PRN 10/11 1430 AC 10/14 Acetaminophen PO 0902 Polyethylene Glycol 17 GM DAILY 10/12 1000 AC 10/14 PO 0903 Senna/Docusate Sodium 2 TAB AT BEDTIME 10/12 2200 AC 10/13 PO 2040 Simethicone 40 MG Q4P PRN 10/12 0745 AC 10/12 PO 1541 Tizanidine HCl 1 MG Q8P PRN 10/11 1430 AC 10/11 PO 2146 Warfarin Sodium 5 MG COUMADIN 1700 ONE 10/13 1700 DC 10/13 PO 10/13 1701 1620 Results Last 48 Hours of Labs: Laboratory Tests 10/14 10/13 0624 0620 Chemistry Sodium (137 - 145 mmol/L) 137 Potassium (3.5 - 5.1 mmol/L) 4.1 Chloride (98 - 107 mmol/L) 101 Carbon Dioxide (22 - 30 mmol/L) 26 Anion Gap (5 - 16) 9 BUN (7 - 17 mg/dL) 15 Creatinine (0.5 - 1.0 mg/dL) 0.8 Estimated GFR (>60 ml/min) > 60 BUN/Creatinine Ratio (7 - 25 %) 18.8 Coagulation PT (9.4 - 12.5 SEC) 28.4 H 18.1 H INR (0.90 - 1.19) 2.73 H 1.73 H Hematology CBC w Diff NO MAN DIFF REQ NO MAN DIFF REQ WBC (4.8 - 10.8 /CUMM) 9.0 9.2 RBC (4.20 - 5.40 /CUMM) 3.87 L 4.04 L Hgb (12.0 - 16.0 G/DL) 11.6 L 12.4 Hct (37 - 47 %) 35.3 L 36.8 L MCV (81.0 - 99.0 FL) 91.2 91.2 MCH (27.0 - 31.0 PG) 30.0 30.7 RDW (11.5 - 14.5 %) 13.8 14.0 Plt Count (130 - 400 /CUMM) 151 149 MPV (7.4 - 10.4 FL) 8.7 8.7 Gran % (42.2 - 75.2 %) 61.8 63.9 Lymphocytes % (20.5 - 51.1 %) 25.1 23.0 Monocytes % (1.7 - 9.3 %) 10.3 H 11.3 H Eosinophils % (0 - 5 %) 2.4 1.4 Basophils % (0.0 - 2.0 %) 0.4 0.4 Absolute Granulocytes (1.4 - 6.5 /CUMM) 5.6 5.9 Absolute Lymphocytes (1.2 - 3.4 /CUMM) 2.3 2.1 Absolute Monocytes (0.10 - 0.60 /CUMM) 0.9 H 1.0 H Absolute Eosinophils (0.0 - 0.7 /CUMM) 0.2 0.1 Absolute Basophils (0.0 - 0.2 /CUMM) 0 0 PUBS MCHC (33.0 - 37.0 G/DL) 32.9 L 33.7 Assessment/Plan Assessment/Plan This 81 year female with hx htn, chf, gerd, overactive bladder, who is POD#3 s/p revision right total knee arthroplasty 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 No Antibiotics Is Patient on Antibiotics? Yes If Yes: prophylaxis
--- NOTE | 2016-10-14 09:22 | Patient Discharge Instructions ---
Discharge Instructions General Discharge Information You were seen/treated for: Aseptic loosening right total knee arthroplasty You had these procedures: Surgery Date: 10/11/16 Name of Procedure: Revision right total knee arthroplasty Watch for these problems: fever>101.3, increased pain, redness/swelling/drainage, shortness of breath, chest pain, dizziness No bath, but you may shower: Yes Other wound care: dry guaze dressing change daily, right knee. steri strips cover & protect incision. Special Instructions: blood draws for PT/INR, coumadin dosing accordingly Diet Continue normal diet: Yes Recommended Diet: Regular Additional DIET Information: coumadin considerations Activity Full Activity/No Limits: No Activity Self Limited: Yes Activity Limited to: Weight bear as tolerated Other activity limits: rolling walker assistance Acute Coronary Syndrome Inclusion Criteria At DC or during hospital stay patient has or had the following: ACS DIAGNOSIS No Discharge Core Measures Meds if any: Prescribed or Continued at Discharge Meds if any: NOT Prescribed or Continued at Discharge Congestive Heart Failure Inclusion Criteria At DC or during hospital stay patient has or had the following: CHF DIAGNOSIS No Discharge Core Measures Meds if any: Prescribed or Continued at Discharge Meds if any: NOT Prescribed or Continued at Discharge Cerebrovascular accident Inclusion Criteria At DC or during hospital stay patient has or had the following: CVA/TIA Diagnosis No Discharge Core Measures Meds if any: Prescribed or Continued at Discharge Meds if any: NOT Prescribed or Continued at Discharge Venous thromboembolism Inclusion Criteria VTE Diagnosis No VTE Type NONE VTE Confirmed by (Test) NONE Discharge Core Measures - Per Current guidelines, there needs to be overlap - treatment for the first 5 days of Warfarin therapy. - If discharged on Warfarin prior to 5 days of - overlap therapy, the patient will need to be - assessed for post discharge needs including - *Post discharge parental anticoagulation - *Warfarin and/or parental anticoagulation education - *Follow up date to check INR post discharge At least 5 days overlap therapy as Inpatient No Meds if any: Prescribed or Continued at Discharge Note: Overlap Therapy is Warfarin and Anticoagulant Meds if any: NOT Prescribed or Continued at Discharge
[2016-10-14] MEDS ORDERED: COUMADIN5 M2 PO (09:32)
[2016-10-14] MEDS ORDERED: MIRALAX119 GM PO (09:32)
[2016-10-14] MEDS ORDERED: PERCOCET 5-3251 EACH PO (09:32)
[2016-10-14] MEDS ORDERED: SENNA PLUS TAB1 EACH PO (09:32)
[2016-10-14] MEDS ORDERED: DOCUSATE SODIU100 M3 PO (09:32)
--- NOTE | 2016-10-14 09:39 | Surgical Discharge Summary ---
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 Assisted Living Who Do You Live With? Patient/Self Services at Home: Home Health Aide, Nursing What is Your Primary Language? Pashto Review of Systems: see h&p Hospital Course Course Attending Physician: ALEC RANDHAWA,[facility] Primary Care Physician: OMAR TEAGUE Hospital Course: Electively scheduled revision right total knee arthroplasty by on 10/11/16 for aseptic loosening right total knee arthroplasty (final pathology/ microbiology pending). Seen by her director of culture, , in the first 24 hours after surgery for reported "chest pain", but had no acute ekg changes and had serial negative troponins. Otherwise routine post-operative course. Seen and evaluated by PT, with recommendations for short term rehab. Pain control transitioned from iv to oral medication. Coumadin dosing given as per blood draws for PT/INR, with a goal INR range of 2-3. Dressing changes started daily on post-op day#2. Otherwise uneventful hospital course. Complications: None Allergies: Coded Allergies: Penicillins (UNKNOWN 10/11/16) PCN PER ONQ BALL ORDER SHEET OF 10/11/16 ([facility]) Pertinent Lab Results: INR 2.73 (10/14/16) Disposition Summary Disposition Principal Diagnosis: Aseptic loosening right total knee arthroplasty Additional Diagnosis: same as above, s/p revision right total knee arthroplasty Discharge Disposition: SNF Discharge Instructions General Discharge Information Code Status: Full Code Patient's Diet: regular diet. coumadin considerations. Patient's Activity: weight bearing as tolerated. rolling walker assistance. Follow-Up Instructions/Appts: dry guaze dressing changes daily, right knee blood draws for PT/INR, for coumadin dose adjustment, with goal INR 2-3 continue PT follow up with in 3-4 weeks Medications at Discharge Discharge Medications: Stop taking the following medications: Celecoxib (Celebrex) 200 MG CAPSULE ORAL TWICE DAILY Tramadol HCl (Ultram) 50 MG TABLET ORAL EVERY 6 HOURS NEEDED as needed for severe pain Qty = 30 Continue taking these medications: Oxybutynin Chloride (Oxybutynin Chloride ER) 10 MG TAB.ER.24 1 Tablet ORAL DAILY Amlodipine Besylate (Norvasc) 10 MG TABLET 1 Tablet ORAL DAILY Pantoprazole Sodium (Protonix) 40 MG TABLET.DR 1 Tablet ORAL DAILY Ubidecarenone (Co Q-10) 50 MG CAPSULE 1 Tablet ORAL DAILY Cholecalciferol (Vitamin D3) (Vitamin D3) 1,000 UNIT CAPSULE 1 Capsule ORAL DAILY Aspirin (Ecotrin*) 81 MG TABLET.DR 1 Tablet ORAL DAILY Magnesium Oxide (Magnesium) 500 MG CAPSULE 0.5 Capsule ORAL DAILY Lisinopril (Lisinopril) 10 MG TABLET 1 Tablet ORAL DAILY Furosemide (Lasix) 20 MG TABLET 1 Tablet ORAL DAILY Tizanidine HCl (Tizanidine HCl) 2 MG CAPSULE 0.5 Milligram ORAL 4 TIMES A DAY Ferrous Sulfate (IRON) 325 MG (65 MG IRON) TABLET 1 Tablet ORAL Every Day Melatonin (Melatonin) 3 MG TABLET 1 Tablet ORAL Every night Start taking the following new medications: Docusate Sodium (Docusate Sodium) 100 MG CAPSULE 100 Milligram ORAL TWICE DAILY as needed for CONSTIPATION Days = 14 No Refills Polyethylene Glycol 3350 (Miralax) 17 GRAM/DOSE POWDER 17 Gram ORAL DAILY as needed for CONSTIPATION Qty = 7 No Refills Sennosides/Docusate Sodium (Senna Plus Tablet) 8.6 MG-50 MG TABLET 2 Tablet ORAL AT BEDTIME as needed for CONSTIPATION Qty = 30 No Refills Oxycodone HCl/Acetaminophen (Percocet 5-325 MG Tablet) 5 MG-325 MG TABLET 1-2 Tablet ORAL EVERY 4-6 HOURS NEEDED as needed for pain control Qty = 36 No Refills Warfarin Sodium (Coumadin) 5 MG TABLET 1 Tablet ORAL DAILY Qty = 30 No Refills Instructions: dose adjustment as per blood draws for PT/INR. goal INR 2-3. Copies To: OMAR TEAGUE
[2016-10-14 12:15] VITALS: BP 124/68
== END 2016-10-14 14:25 | DRG 467 ==
LOC: SDA 04:57 → 2NA 04:57 → ENRESERV 12:39 → ENTRNSPT 13:24 → EDTRNSPTSTS 14:03 → EDTRNSPT 14:03 → 2NA 14:11 → CMPTRNSPT 14:30 → ENPENDDIS 10-14 09:36 → 2NA 10-14 14:25
PROVIDERS: Nurse Practitioner; Physician Assistant; Physician Assistant Surgical; ADMIT Orthopaedic Surgery
PROC: 0SPC0JZ Removal of Synthetic Substitute from Right Knee Joint, Open Approach (ICD-10-PCS; principal; 2016-10-11)
PROC: 0SRC0J9 Replacement of Right Knee Joint with Synthetic Substitute, Cemented, Open Approach (ICD-10-PCS; 2016-10-11)
DX: T84.032A Mechanical loosening of internal right knee prosthetic joint, initial encounter (principal); I50.32 Chronic diastolic (congestive) heart failure; I11.0 Hypertensive heart disease with heart failure; I47.1 Supraventricular tachycardia; Z88.0 Allergy status to penicillin; K21.9 Gastro-esophageal reflux disease without esophagitis; Z96.612 Presence of left artificial shoulder joint; Z96.611 Presence of right artificial shoulder joint; Z96.642 Presence of left artificial hip joint
CPT/HCPCS: 2NASP; 36415; 73560-RT; 82436; 87086; 88305; 93005; 93010; 97110-GO; 97112-GO; 97116-GO; 97161-GP; 97530-GO; C1713; EXP; J0171; J1885; J2405; J2795; J3370; J7040